=== PATIENT | female | born 1985 | race Caucasian/White ===

== ENCOUNTER 2017-05-24 10:30 | Emergency (ER) | payer OTHER ==
[~2017-05-24] VITALS: Ht 160 cm; Wt 54.4 kg
--- NOTE | 2017-05-24 11:25 | NUR ---
PATIENT WASS EEN BY FOR TOE ISSUES. XRAY DONE. DC, RX AND FOLLOW UP INSTRUCTIONS GIVEN AND EXPLAINED TO PATIENT WHO STATES SHE UNDERSTANDS ALL INSTRUCTIONS.
== END 2017-05-24 11:28 | disposition home or self-care (01) ==
LOC: ER 10:30
DX: S92.532A Displaced fracture of distal phalanx of left lesser toe(s), initial encounter for closed fracture (principal); G43.909 Migraine, unspecified, not intractable, without status migrainosus; W22.03XA Walked into furniture, initial encounter; Y93.89 Activity, other specified; Y92.9 Unspecified place or not applicable; Y99.9 Unspecified external cause status
CPT/HCPCS: 73630; A4663

== ENCOUNTER 2018-08-29 18:42 | Emergency (ER) | payer OTHER ==
[~2018-08-29] VITALS: Ht 160 cm; Wt 59.9 kg
--- NOTE | 2018-08-29 19:09 | NUR ---
RECEIVED SHIFT REPORT FROM EMILY QUINTEROS. PT SITTING IN BED AT THIS TIME - NO COMPLAINTS.
--- NOTE | 2018-08-29 19:12 | NUR ---
ARSLAN VIVAR AT BEDSIDE FOR PT UPDATE.
--- NOTE | 2018-08-29 19:20 | NUR ---
Patient discharged to home in stable conditon. Written and verbal after care instructions given. Patient verbalizes understanding of instructions. PT D/C W/ PRESCRIPTION. ALL BELONGINGS W/ PT. PT SELF-AMBULATED W/O DIFFICULTY. COLLE'S SPLINT APPLIED TO L WRIST, [facility] [place], INTACT, AND CAP REFILL < 3 SECONDS.
[2018-08-29 19:21] VITALS: BP 122/72
== END 2018-08-29 19:22 | disposition home or self-care (01) ==
LOC: ER 18:44
DX: S63.502A Unspecified sprain of left wrist, initial encounter (principal); Z88.8 Allergy status to other drugs, medicaments and biological substances; W19.XXXA Unspecified fall, initial encounter; Y93.89 Activity, other specified; Y92.89 Other specified places as the place of occurrence of the external cause; Y99.8 Other external cause status
CPT/HCPCS: 73110; 73130; A4663

== ENCOUNTER 2018-08-31 18:55 | Emergency (ER) | payer OTHER ==
[~2018-08-31] VITALS: Ht 160 cm; Wt 59.9 kg
--- NOTE | 2018-08-31 19:25 | NUR ---
Pt. ambulated into ED w/ c/o sore throat and ear ache, denies F/C/N/V/Stephen VALENTE/MD Jeniffer at bedside for MSE,
--- NOTE | 2018-08-31 19:32 | NUR ---
Patient discharged to home in stable conditon. Written and verbal after care instructions given. Patient verbalizes understanding of instructions. Pt. d/c w/ prescription per MD order, d/c papers signed, ambulated out of ED w/ steady gait, all belongings w/ pt., left in private vehicle, no acute distress,
== END 2018-08-31 19:34 | disposition home or self-care (01) ==
LOC: ER 18:55
DX: B34.9 Viral infection, unspecified (principal); H93.13 Tinnitus, bilateral
CPT/HCPCS: A4663

== ENCOUNTER → 2018-09-29 | Emergency (ER) | payer OTHER ==
[~2018-09-29] VITALS: Ht 160 cm; Wt 61.2 kg
--- NOTE | 2018-09-29 00:36 | NUR ---
Pt. ambulated into ED accompanied by 3 daughters w/ c/o coughing, L ear ache x 3 days, at bedside for MSE
--- NOTE | 2018-09-29 00:46 | NUR ---
Patient discharged to home in stable conditon. Written and verbal after care instructions given. Patient verbalizes understanding of instructions. Pt. d/c w/ prescription per MD order, all d/c papers signed, ID band removed, all belongings w/ pt., d/c paper signed, ambulated w/ steady gait off unit, left in private vehicle, NAD,
== END | disposition home or self-care (01) ==
LOC: ER 00:29
DX: B34.9 Viral infection, unspecified (principal); Z88.8 Allergy status to other drugs, medicaments and biological substances
CPT/HCPCS: A4663

== ENCOUNTER 2018-11-13 16:19 | Emergency (ER) | payer OTHER ==
[~2018-11-13] VITALS: Ht 160 cm; Wt 59.0 kg
[2018-11-13 17:01] VITALS: BP 114/78
--- NOTE | 2018-11-13 17:01 | NUR ---
Patient discharged to home in stable conditon. Written and verbal after care instructions given. Patient verbalizes understanding of instructions.
== END 2018-11-13 17:11 | disposition home or self-care (01) ==
LOC: ER 16:19
DX: S21.152A Open bite of left front wall of thorax without penetration into thoracic cavity, initial encounter (principal); Z88.8 Allergy status to other drugs, medicaments and biological substances; W54.0XXA Bitten by dog, initial encounter; Y93.89 Activity, other specified; Y92.89 Other specified places as the place of occurrence of the external cause; Y99.8 Other external cause status
CPT/HCPCS: 71045; A4663

== ENCOUNTER 2020-05-11 16:30 | Emergency (ER) | payer OTHER ==
[~2020-05-11] VITALS: Ht 160 cm; Wt 59.0 kg
[2020-05-11] MEDS ORDERED: IBUPROFEN 600 MG TABLET PO ONE (17:15)
[2020-05-11 17:27] VITALS: BP 124/77
== END 2020-05-11 17:22 | disposition home or self-care (01) ==
LOC: ER 16:33
DX: L03.115 Cellulitis of right lower limb (principal); Z86.69 Personal history of other diseases of the nervous system and sense organs; Z88.8 Allergy status to other drugs, medicaments and biological substances
CPT/HCPCS: 73630; A4663

== ENCOUNTER 2021-10-16 13:15 | Emergency (ER) | payer OTHER ==
[~2021-10-16] VITALS: Ht 160 cm; Wt 59.0 kg
[~2021-10-16 13:15] MED LIST: OXYC-128 PO
[2021-10-16] MEDS ORDERED: ONDANSETRON 4 MG/2 ML VIAL IV ONE (13:30)
[2021-10-16] MEDS ORDERED: IV NORMAL SALINE 1000 ML BAG IV ONE ×2 (13:30→16:00)
[2021-10-16 13:47] LABS: HEMATOCRIT 38.3 % (31.2-41.9); MEAN CORPUSCULAR HEMOGLOBIN 30.9 uug (24.7-32.8); MEAN CORPUSCULAR VOLUME 90.2 fL (75.5-95.3); PLATELET COUNT (AUTO) 323 K/uL (179-408)
[2021-10-16] MEDS ORDERED: ONDANSETRON 4 MG/2 ML VIAL ONE (13:49)
[2021-10-16 13:57] LABS: ALANINE AMINOTRANSFERASE 19 U/L (14-59); ALKALINE PHOSPHATASE 59 U/L (50-136); ASPARTATE AMINOTRANSFERASE 17 U/L (15-37); BILIRUBIN,DIRECT 0.1 mg/dL (0.0-0.2); BILIRUBIN,TOTAL 0.3 mg/dL (0.2-1.0); CARBON DIOXIDE 26 mmol/L (21-32); CHLORIDE 103 mmol/L (98-107); CREATININE 0.5 mg/dL (0.6-1.3); GLUCOSE 88 mg/dL (74-106); POTASSIUM 3.7 mmol/L (3.5-5.1); TOTAL PROTEIN, SERUM 6.8 g/dL (6.4-8.2); UREA NITROGEN, BLOOD 10 mg/dL (7-18)
[2021-10-16 15:06] LABS: *BILIRUBIN,URIN NEGATIVE (NEGATIVE); *BLOOD, URINE NEGATIVE (NEGATIVE); *CLARITY,URINE CLEAR (CLEAR); *COLOR,URINE YELLOW (YELLOW); *KETONES,URINE NEGATIVE (NEGATIVE); *UROBILINOGEN,URINE 0.2 E.U./dl (NORMAL); LEUKOCYTE ESTERASE ,URINE TRACE (NEGATIVE); NITRITE, URINE NEGATIVE (NEGATIVE); UGLUCOSE NEGATIVE (NEGATIVE)
[2021-10-16] MEDS ORDERED: METO-295 PO (15:16)
[2021-10-16 16:33] VITALS: BP 121/71
--- NOTE | 2021-10-16 16:33 | NUR ---
Patient discharged to home in stable condition. Written and verbal after care instructions given. Patient verbalizes understanding of instructions. Stressed follow up or return to ER for worsening s/s.pt walks in steady gait.
[2021-10-16 19:48] LABS: BACTERIA,URINE RARE /HPF (NONE SEEN); RBC,URINE 0-3 /HPF (0-3); SQUAMOUS EPITHELIAL CELL,UR FEW /HPF (NONE SEEN)
== END 2021-10-16 16:35 | disposition home or self-care (01) ==
LOC: ER 13:15
DX: O26.892 Other specified pregnancy related conditions, second trimester (principal); R11.0 Nausea; R19.7 Diarrhea, unspecified; G43.909 Migraine, unspecified, not intractable, without status migrainosus; Z88.8 Allergy status to other drugs, medicaments and biological substances; Z79.899 Other long term (current) drug therapy; Z3A.16 16 weeks gestation of pregnancy
CPT/HCPCS: 36415; 76856; 80048; 80076; 81001; 84702; 85025; 96361; 96374; 99284; J2405; A4663; J7030

== ENCOUNTER 2021-12-28 14:35 | Emergency (ER) | payer OTHER ==
[~2021-12-28] VITALS: Ht 160 cm; Wt 59.9 kg
[~2021-12-28 14:35] MED LIST changes: +METO-295 PO
[2021-12-28] MEDS ORDERED: DIPH50CA37 PO (15:19)
[2021-12-28] MEDS ORDERED: ONDA4TAB5 PO (15:19)
[2021-12-28 15:25] VITALS: BP 102/63
--- NOTE | 2021-12-28 15:25 | NUR ---
Patient discharged to home in stable condition. Written and verbal after care instructions given. Patient verbalizes understanding of instructions. Stressed follow up or return to ER for worsening s/s.
== END 2021-12-28 15:25 | disposition home or self-care (01) ==
LOC: ER 14:35
DX: O98.512 Other viral diseases complicating pregnancy, second trimester (principal); B34.9 Viral infection, unspecified; Z3A.26 26 weeks gestation of pregnancy
CPT/HCPCS: A4663

== ENCOUNTER 2022-03-09 12:47 | Emergency (ER) | payer OTHER ==
[~2022-03-09] VITALS: Ht 160 cm; Wt 65.8 kg
[~2022-03-09 12:47] MED LIST changes: +DIPH50CA37 PO; +ONDA4TAB5 PO
--- NOTE | 2022-03-09 13:09 | NUR ---
DR ALCAZAR AT BEDSIDE FOR EVALUATION.
--- NOTE | 2022-03-09 14:04 | NUR ---
DISCHARGE INSTRUCTIONS PER MD DIRECTIVES - PT TO FOLLOW-UP JENSEN CAMPOS
[2022-03-09 14:05] VITALS: BP 108/69
== END 2022-03-09 13:20 | disposition home or self-care (01) ==
LOC: ER 12:47
DX: O47.1 False labor at or after 37 completed weeks of gestation (principal); Z3A.39 39 weeks gestation of pregnancy
CPT/HCPCS: A4663